=== PATIENT | male | born 1965 | race Caucasian/White ===

== ENCOUNTER 2023-03-17 15:38 | Emergency (ER) | payer OTHER ==
[~2023-03-17] VITALS: Ht 177.8 cm; Wt 92.1 kg
[2023-03-17 17:53] VITALS: BP 154/82; PULSE 64; RESP 18; O2SAT 95
== END 2023-03-17 18:43 ==
LOC: EDH 15:38 → EEVIPCON 15:38 → EDH 18:43
DX: T78.40XA Allergy, unspecified, initial encounter (principal); E78.00 Pure hypercholesterolemia, unspecified; I10 Essential (primary) hypertension
CPT/HCPCS: 99282